=== PATIENT | male | born 1960 | race Caucasian/White ===

== ENCOUNTER 2023-11-06 11:41 | Emergency (ER) | payer MEDICAID ==
[~2023-11-06] VITALS: Ht 190.5 cm; Wt 99.9 kg
[2023-11-06 11:45] VITALS: BP 152/116; PULSE 78; RESP 16; TEMP 97.8; O2SAT 95
[2023-11-06] MEDS ORDERED: ACET650T5 PO (13:05)
== END 2023-11-06 13:17 | disposition home or self-care (01) ==
LOC: ER 11:41
DX: M19.011 Primary osteoarthritis, right shoulder (principal); Z88.6 Allergy status to analgesic agent
CPT/HCPCS: 73030